=== PATIENT | female | born 1975 | race Caucasian/White ===

== ENCOUNTER → 2017-07-18 | Outpatient (CLI) | payer BC ==
[~2017-07-18] MED LIST: LEVO150T PO
--- NOTE | 2017-07-18 15:40 | MAMMOGRAPHY REPORT ---
UNILATERAL RIGHT DIGITAL DIAGNOSTIC MAMMOGRAM TOMOSYNTHESIS WITH CAD AND TARGETED RIGHT ULTRASOUND: CLINICAL HISTORY: 41-year-old woman presents with a palpable, painful lump in the inferior right axel st. She denies skin erythema and nipple discharge. Family history of breast cancer. TECHNIQUE: Right breast tomosynthesis in addition to standard 2D mammography was performed. Current hardik poe was also evaluated with a Computer Aided Detection (CAD) system. COMPARISON: Comparison is made to exams dated: 02/01/2017 mammogram, 01/18/2016 mammogram, 01/06/2016 ma mmogram, and 05/21/2014 mammogram. BREAST COMPOSITION: There are scattered areas of fibroglandular density in the right breast. FINDINGS: A triangle palpable marker overlies the 5:00 middle one third of the right breast. There i s no evidence of a new suspicious mass, asymmetry, distortion or calcifications near the area of palp able lump. There is stable asymmetry in the 12:00 right breast. No new suspicious mass, architectur al distortion or cluster of microcalcifications is seen throughout the entire right breast. Targeted ultrasound was performed in the area of palpable lump pointed out by the patient (5:30 right breast, 6 cm from the nipple). There is sonographically normal tissue without evidence of a suspici ous solid or cystic mass. The patient also describes thickening along her inframammary fold, which i s within the range of normal. IMPRESSION: ACR BI-RADS CATEGORY 2: BENIGN, TARGETED ULTRASOUND ACR BI-RADS CATEGORY 2: BENIGN Stable mammographic appearance of the right breast. There is no mammographic or targeted sonographic evidence of malignancy. Clinical follow-up is recommended for the palpable lump in the right breast , as biopsy of a clinically suspicious mass should not be precluded by negative imaging. Otherwise, recommend return to annual screening mammography schedule. Approximately 10% of breast cancers are not detected with mammography. A negative mammographic report should not delay biopsy if a clinically suggestive mass is present. Darlin Valdez M.D. ay/:07/18/2017 15:00:50 Film Writer: Bushra CASTELLANO)(Haley), [facility] letter sent: Normal 1/2 BI-RADS Code: ACR BI-RADS Category 2: Benign Ultrasound BI-RADS: ACR BI-RADS Category 2: Benign
== END | disposition home or self-care (01) ==
LOC: C.MAMM 13:28
DX: N63 Unspecified lump in breast (principal)